=== PATIENT | female | born 1930 | race Caucasian/White ===

== ENCOUNTER 2016-11-02 10:44 | Outpatient (CLI) | payer OTHER | END 2016-11-02 20:16 | disposition home or self-care (01) | LOC: SMA 10:44 | PROVIDERS: ATTEND Family Medicine | DX: Z12.31 Encounter for screening mammogram for malignant neoplasm of breast (principal) | CPT/HCPCS: G0202 ==

== ENCOUNTER 2017-10-17 10:20 | Outpatient (CLI) | payer OTHER | END 2017-10-17 20:46 | disposition home or self-care (01) | LOC: SMA 10:20 | PROVIDERS: ATTEND Family Medicine | DX: Z12.31 Encounter for screening mammogram for malignant neoplasm of breast (principal) | CPT/HCPCS: 77067 ==

== ENCOUNTER 2018-10-20 09:45 | Outpatient (CLI) | payer OTHER | END 2018-10-21 13:45 | disposition home or self-care (01) | LOC: SMA 09:45 | PROVIDERS: ATTEND Family Medicine | DX: Z12.31 Encounter for screening mammogram for malignant neoplasm of breast (principal) | CPT/HCPCS: 77067 ==